=== PATIENT | male | born 1955 | race Hispanic/Latino ===

== ENCOUNTER 2017-02-26 07:38 | Emergency (ER) | payer OTHER ==
[2017-02-26 07:44] VITALS: BMI 24.4
[2017-02-26] MEDS ORDERED: Amoxicillin-Clav 875-125 mg Tab PO STA (07:44)
--- NOTE | 2017-02-26 07:46 | ED PDOC ---
Arrival/HPI - General Time Seen by Provider: 02/26/17 07:41 Historian: Patient - History of Present Illness Narrative History of Present Illness (Text): 02/26/17 07:35 A 61 year old male presents to the emergency department complaining that he was accidentally bitten by his dog two days ago on left hand on dorsal side. Patient reports his tetanus is up to date and dog's vaccinations are up to date. Patient reports dog is home and acting appropriately. He notes he has some pain in area and mild swelling. Patient denies any other complaints at this time. Time/Duration: Other (two days) Symptom Onset: Sudden Symptom Course: Unchanged Activities at Onset: Rest Modifying Factors (Text): none Context: Home Past Medical History - Provider Review Nursing Documentation Reviewed: Yes Family/Social History - Physician Review Nursing Documentation Reviewed: Yes Family/Social History: No Known Family HX Allergies/Home Meds Allergies/Adverse Reactions: Allergies No Known Allergies Allergy (Verified 02/26/17 07:43) Home Medications: Home Meds Medication Instructions Recorded Confirmed Hydrochlorothiazide [Microzide] 1 tab PO DAILY 02/26/17 02/26/17 Lisinopril [Zestril] 1 tab PO DAILY 02/26/17 02/26/17 Rosuvastatin Calcium [Crestor] 1 tab PO HS 02/26/17 02/26/17 Review of Systems - Physician Review All systems were reviewed & negative as marked: Yes Physical Exam - Physical Exam Narrative Physical Exam (Text): 02/26/17 08:14- Review of Systems Constitutional: Normal. absent: Fatigue, Weight Change, Fevers Eyes: Normal ENT: Normal Respiratory: Normal absent: SOB, Cough, Sputum Cardiovascular: Normal absent: Chest pain, Palpitations, Syncope Gastrointestinal: Normal absent: Abdominal pain, Diarrhea, Nausea, Vomiting Genitourinary: Normal. absent: Dysuria, Frequency, Hematuria Musculoskeletal: Normal. absent: Arthralgias, Back Pain, Neck Pain Skin: Left hand superficial abrasions Neurological: Normal absent: Focal Weakness Endocrine: Normal Hemo/Lymphatic: Normal Psychiatric: Normal - Physical exam Limited PE Patient appears age appropriate, speaking full sentences without difficulty - Systems Exam Head: Present: Atraumatic, Normocephalic Pupils: Present: PERRL Extraocular Muscles: Present: EOMI Conjunctiva: Present: Normal Mouth: Present: Moist Mucous Membranes Neck: Present: Normal Range of Motion. No: MIDLINE TENDERNESS, Paraspinal Tenderness Respiratory/Chest: Present: Clear to Auscultation, Good Air Exchange. No: Respiratory Distress, Accessory Muscle Use, Tachypneic Cardiovascular: Present: Regular Rate and Rhythm, Normal S1, S2, Peripheral Pulses Present. No: Murmurs Abdomen: Present: Normal Bowel Sounds, No: Tenderness, Peritoneal Signs, Rebound, Guarding, Distention Back: Present: Normal Inspection. No: Midline Tenderness, Paraspinal Tenderness Upper Extremity: Present: Normal Inspection. No: Cyanosis, Edema Lower Extremity: Present: Normal Inspection. No: Edema Neurological: Present: Distal neurovascular fully intact, GCS=15, Speech Normal , cranial nerves II through XII fully intact with no cerebellar abnormality, neuro-sensory fully intact. No focal neurological deficits. Skin: Present: superficial abrasions on left hand, well healing, no streaking, some scant surrounding erythema around abrasion, no warmth, no crepitus, full active and passive range of motion. Distal neurovascular fully intact. Lymphatic: Present: OX3, NI, NC Psychiatric: Present: Alert, Oriented x 3, Normal Insight, Normal Concentration Vital Signs Reviewed: Yes Vital Signs Temp Pulse Resp BP Pulse Ox 02/26/17 07:46 97.8 F 86 18 192/118 H 99 Temperature: Afebrile Blood Pressure: Hypertensive Pulse: Regular Respiratory Rate: Normal Appearance: Positive for: Well-Appearing, Non-Toxic, Comfortable Pain Distress: None Mental Status: Positive for: Alert and Oriented X 3 Medical Decision Making ED Course and Treatment: 02/26/17 07:40 Impression: A 61 year old male with dog bite on left hand on dorsal side. On physical exam, patient has superficial abrasions on left hand, well healing, no streaking, some scant surrounding erythema around abrasion, no warmth, no crepitus, full active and passive range of motion. Distal neurovascular fully intact. Plan: -- Augmentin Progress Notes: Patient is hypertensive in emergency department and asymptomatic. Patient has a history of hypertension and states he has not taken his medications yet. Patient in agreement with plan to discharged home. Patient is stable for discharge. Patient was instructed to follow up with physician/clinic in 1-2 days or return if symptoms worsen or new concerning symptoms arise. - Medication Orders Current Medication Orders: Discontinued Medications Amoxicillin/Clavulanate Potassium (Augmentin 875 Mg-125 Mg Tab) 1 tab PO STAT STA PRN Reason: Protocol Stop: 02/26/17 07:45 Last Admin: 02/26/17 07:54 Dose: 1 tab Disposition/Present on Arrival - Present on Arrival Any Indicators Present on Arrival: No - Disposition Have Diagnosis and Disposition been Completed?: Yes Diagnosis: Dog bite Disposition: HOME/ ROUTINE Disposition Time: 07:47 Patient Plan: Discharge Condition: GOOD Discharge Instructions (ExitCare): Animal Bite (ED) Additional Instructions: PLEASE RETURN TO THE EMERGENCY DEPARTMENT FOR NEW OR WORSENING SYMPTOMS. RETURN RIGHT AWAY IF YOU CANNOT FOLLOW UP WITH YOUR PRIMARY CARE DOCTOR, CLINIC, OR SPECIALIST IN 1-2 DAYS. Prescriptions: Amoxicillin/Clavulanate [Augmentin 875 MG-125 MG] 1 tab PO BID #[id number] Referrals: Toby Singleton MD [Staff Provider] - Follow up with primary [facility] at [facility] [Outside] - Follow up with primary Forms: WORK NOTE
[2017-02-26 07:47] VITALS: BP 192/118; PULSE 86; RESP 18; TEMP 97.8; O2SAT 99
== END 2017-02-26 08:01 | disposition home or self-care (01) ==
LOC: ED 07:38
DX: S60.572A Other superficial bite of hand of left hand, initial encounter (principal); W54.0XXA Bitten by dog, initial encounter; Y92.009 Unspecified place in unspecified non-institutional (private) residence as the place of occurrence of the external cause

== ENCOUNTER 2018-11-27 10:17 | Outpatient (CLI) | payer OTHER | END 2018-11-27 10:18 | disposition home or self-care (01) | LOC: LAB 10:17 | DX: E78.2 Mixed hyperlipidemia (principal); I10 Essential (primary) hypertension; R73.09 Other abnormal glucose; E55.9 Vitamin D deficiency, unspecified ==

== ENCOUNTER 2019-02-03 06:58 | Day surgery (SDC) | payer OTHER ==
[2019-01-24 14:23] VITALS: BMI 24.5
[2019-02-03] MEDS ORDERED: Propofol 10 mg/ml Inj (20 ML) ONE ×2 (09:49→10:22)
[2019-02-03] MEDS ORDERED: Sodium Chloride 0.9% 1,000 ML IV SCH (10:30)
[2019-02-03 11:43] VITALS: BP 146/81; PULSE 71; RESP 20; TEMP 97.8; O2SAT 98
== END 2019-02-03 11:24 | disposition home or self-care (01) ==
LOC: ENDO 06:58
PROVIDERS: ATTEND Internal Medicine Gastroenterology
DX: Z12.11 Encounter for screening for malignant neoplasm of colon (principal); D12.8 Benign neoplasm of rectum; K57.30 Diverticulosis of large intestine without perforation or abscess without bleeding; K63.89 Other specified diseases of intestine; I10 Essential (primary) hypertension; E78.5 Hyperlipidemia, unspecified; Z86.010 Personal history of colon polyps
CPT/HCPCS: 45385; 88305; J2001; J2704; J3010; J7030; J7040

== ENCOUNTER 2019-03-13 10:29 | Outpatient (CLI) | payer OTHER | END 2019-03-13 10:30 | disposition home or self-care (01) | LOC: LAB 10:29 ==